=== PATIENT | male | born 1990 | race Caucasian/White ===

== ENCOUNTER 2024-10-15 11:18 | Emergency (ER) | payer OTHER, BC ==
[2024-10-15] MEDS ORDERED: Sodium Chloride 0.9% 10 ML Syringe FLUSH PRN (11:27)
[2024-10-15] MEDS: Ketorolac 30 MG/ML SDV IM ONE (11:39)
[2024-10-15] MEDS: Lactated Ringers 1,000 ML IV ONE (11:41)
[2024-10-15] MEDS: diphenhydrAMINE 50 MG/ML SDV IVPUSH ONE (11:41)
[2024-10-15] MEDS: Ondansetron 4 MG/2 ML SDV IVPUSH ONE (11:42)
[2024-10-15] MEDS: Metoclopramide 10 MG/2 ML SDV IVPUSH ONE (11:43)
== END 2024-10-15 12:22 | disposition home or self-care (01) ==
LOC: VM.ED 11:18
DX: G43.909 Migraine, unspecified, not intractable, without status migrainosus (principal); J32.9 Chronic sinusitis, unspecified; Z91.09 Other allergy status, other than to drugs and biological substances; Z79.899 Other long term (current) drug therapy
CPT/HCPCS: 96361; 96372; 96374; 96375; 99283; 99283-25; J1200; J1885; J2405; J2765; J7120

== ENCOUNTER 2025-07-14 21:49 | Emergency (ER) | payer OTHER ==
[2025-07-14] MEDS: Ondansetron 4 MG/2 ML SDV IVPUSH ONE (22:28)
[2025-07-14] MEDS: Ketorolac 15 MG/ML SDV IVPUSH ONE (22:28)
[2025-07-14] MEDS: diphenhydrAMINE 50 MG/ML SDV IVPUSH ONE (22:28)
[2025-07-14] MEDS: Lactated Ringers 1,000 ML IV ONE (22:29)
== END 2025-07-14 23:31 | disposition home or self-care (01) ==
LOC: VM.ED 21:49
DX: G43.909 Migraine, unspecified, not intractable, without status migrainosus (principal); F17.200 Nicotine dependence, unspecified, uncomplicated; Z79.899 Other long term (current) drug therapy; Z88.1 Allergy status to other antibiotic agents; Z91.018 Allergy to other foods
CPT/HCPCS: 96361; 96374; 96375; 99283-25; 99284; J1200; J1885; J2405; J2765; J7120